=== PATIENT | male | born 1960 | race Caucasian/White ===

== ENCOUNTER 2016-10-16 06:42 | Inpatient (IN) | payer OTHER ==
[~2016-10-16 06:42] MED LIST: ONDANSETRON HCL8 M1 PO; OXYCODONE HCL5 M1 PO; OXYCONTIN20 M2 PO
[2016-10-16] MEDS ORDERED: COMPAZINE10 MG PO (06:51)
[2016-10-16] MEDS ORDERED: PRILOSEC OTC20 M1 PO (06:52)
[2016-10-16] MEDS ORDERED: DEXAMETHASONE4 M1 PO (06:53)
[2016-10-16] MEDS ORDERED: SENNA S TABLET1 EACH PO (06:53)
[2016-10-16 07:27] LABS: INR 1.1 INR (0.9-1.1); PROTHROMBIN TIME 12.8 SECONDS (9.0-13.6)
[2016-10-16 07:29] LABS: HCT-HEMATOCRIT 28.6 % (36.0-53.5); HGB-HEMOGLOBIN 9.4 gm/dl (13.5-17.0); MCH (MEAN CORPUSCULAR HGB) 28.1 pg (28.0-32.0); MCHC MEAN CORPUSCULAR HGB CONC 32.9 % (32.0-36.0); MCV (MEAN CELL VOLUME) 85.4 fl (82.0-96.0); NEUTROPHIL-AUTOMATED 7.1 tho/cmm (1.6-8.0); RED BLOOD COUNT 3.35 mil/cmm (4.40-5.70); RED CELL DISTRIBUTION WIDTH 18.4 % (12.4-16.4); WHITE BLOOD COUNT 8.8 tho/cmm (4.0-10.0)
[2016-10-16 07:43] LABS: ALB/GLOB RATIO 0.4 (0.8-2.0); ALBUMIN 1.6 g/dl (3.5-5.0); ALT/SGPT 137 U/L (12-78); ANION GAP 24 mmol/L (0-20); AST/SGOT 167 U/L (10-40); BILIRUBIN,TOTAL 1.7 mg/dl (0.0-1.5); BLOOD UREA NITROGEN 30 mg/dl (6-24); CALCIUM 8.4 mg/dl (8.5-10.5); CARBON DIOXIDE-VENOUS 21 mmol/L (22-32); CHLORIDE 91 mmol/l (96-110); CREATININE 0.81 mg/dl (0.60-1.30); GLUCOSE 94 mg/dL (70-110); POTASSIUM 4.6 mmol/L (3.7-5.1); SODIUM 131 mmol/L (135-145); eGFR VALUE FOR BLACK >90 mL/Min
[2016-10-16 07:49] LABS: ALKALINE PHOSPHATASE 625 U/L (33-138)
[2016-10-16 08:13] LABS: BAND % 16 % (0-20); BAND ABSOLUTE COUNT 1.4 tho/cmm (0-2.0)
[2016-10-16 08:16] LABS: PLATELET COUNT 17 tho/cmm (150-450)
[2016-10-16 09:53] LABS: URINE APPEARANCE CLEAR; URINE BILIRUBIN NEGATIVE (NEG); URINE BLOOD MODERATE (NEG); URINE COLOR YELLOW; URINE GLUCOSE (UA) NEGATIVE (NEG); URINE KETONE SMALL (NEG); URINE LEUKOCYTE ESTERASE NEGATIVE (NEG); URINE NITRITE NEGATIVE (NEG); URINE PROTEIN MODERATE (NEG); URINE SPECIFIC GRAVITY 1.015 (1.003-1.030)
[2016-10-16 10:09] LABS: URINE EPITHELIAL CELLS 0-1 /[HPF] (0-10); URINE RBC 0-1 /[HPF] (0-5); URINE WBC 0-1 /[HPF] (0-5)
[2016-10-17 05:48] LABS: ALB/GLOB RATIO 0.3 (0.8-2.0); ALBUMIN 1.5 g/dl (3.5-5.0); ALT/SGPT 134 U/L (12-78); ANION GAP 22 mmol/L (0-20); AST/SGOT 191 U/L (10-40); BILIRUBIN,TOTAL 1.6 mg/dl (0.0-1.5); BLOOD UREA NITROGEN 24 mg/dl (6-24); CALCIUM 8.3 mg/dl (8.5-10.5); CARBON DIOXIDE-VENOUS 19 mmol/L (22-32); CHLORIDE 96 mmol/l (96-110); CREATININE 0.84 mg/dl (0.60-1.30); GLUCOSE 102 mg/dL (70-110); POTASSIUM 4.7 mmol/L (3.7-5.1); SODIUM 132 mmol/L (135-145); eGFR VALUE FOR BLACK >90 mL/Min
[2016-10-17 05:51] LABS: ALKALINE PHOSPHATASE 535 U/L (33-138); CREATINE PHOSPHOKINASE (CPK) 31 U/L (35-232)
[2016-10-17 05:52] LABS: HCT-HEMATOCRIT 25.8 % (36.0-53.5); HGB-HEMOGLOBIN 8.4 gm/dl (13.5-17.0); MCH (MEAN CORPUSCULAR HGB) 27.9 pg (28.0-32.0); MCHC MEAN CORPUSCULAR HGB CONC 32.6 % (32.0-36.0); MCV (MEAN CELL VOLUME) 85.7 fl (82.0-96.0); NEUTROPHIL-AUTOMATED 6.4 tho/cmm (1.6-8.0); RED BLOOD COUNT 3.01 mil/cmm (4.40-5.70); RED CELL DISTRIBUTION WIDTH 18.9 % (12.4-16.4); TSH-THYROID STIMULATING HORM. 1.78 uIU/ml (0.40-3.80); WHITE BLOOD COUNT 7.8 tho/cmm (4.0-10.0)
[2016-10-17 06:02] LABS: PLATELET COUNT 28 tho/cmm (150-450)
[2016-10-17 10:19] LABS: BAND % 39 % (0-20)
[2016-10-17 10:24] LABS: WBC MORPHOLOGY TOXIC GRANULATION
== END 2016-10-18 10:05 | disposition hospice, home (50) | DRG 628 ==
LOC: EDMED 06:42 → EMR2 09:25 → 5WF 10:05
PROVIDERS: Emergency Medicine; ADMIT Internal Medicine Medical Oncology
PROC: 30233R1 Transfusion of Nonautologous Platelets into Peripheral Vein, Percutaneous Approach (ICD-10-PCS; 2016-10-16)
PROC: 0W3Q7ZZ Control Bleeding in Respiratory Tract, Via Natural or Artificial Opening (ICD-10-PCS; principal; 2016-10-17)
DX: R62.7 Adult failure to thrive (principal); K72.00 Acute and subacute hepatic failure without coma; E43 Unspecified severe protein-calorie malnutrition; C78.00 Secondary malignant neoplasm of unspecified lung; D69.6 Thrombocytopenia, unspecified; C78.7 Secondary malignant neoplasm of liver and intrahepatic bile duct; C79.51 Secondary malignant neoplasm of bone; R53.1 Weakness; R60.0 Localized edema; R06.00 Dyspnea, unspecified; D64.9 Anemia, unspecified; Z85.528 Personal history of other malignant neoplasm of kidney; R04.0 Epistaxis; Z66 Do not resuscitate; G89.3 Neoplasm related pain (acute) (chronic); Z68.22 Body mass index [BMI] 22.0-22.9, adult
CPT/HCPCS: P9035; P9037; Q9967